=== PATIENT | male | born 1930 | race Caucasian/White ===

== ENCOUNTER 2017-11-19 10:03 | Emergency (ER) | payer MEDICARE ==
[~2017-11-19] VITALS: Ht 175.3 cm; Wt 86.2 kg
--- NOTE | 2017-11-19 10:06 | Emergency Room Report ---
History of Present Illness General Chief Complaint: To Be Triaged Source: Patient Present Illness HPI [id number] walk-in with acute dizziness and nausea Patient "feels like my balance is off." Patient woke up this morning approximately 2 hours ago Patient states she woke up at 7, went to the bathroom then went back to bed felt okay. An hour later patient woke up had severe dizziness with nausea without vomiting , felt like he "was falling all over the place" but notes specifically he keeps feeling like he's got a fall to the right side. Never had this before. no associated headache, chest pain, shortness of breath, abdominal pain, urinary complaints. Patient with history significant for high blood pressure, diabetes, cardiac stents No prior stroke Allergies: Coded Allergies: No Known Allergies (Unverified , 11/19/17) Patient History Past Medical History: DM, HTN, CAD Past Surgical History: pacemaker Pertinent Family History: none Social History: Denies: smoking, alcohol use, drug use Immunizations: UTD Reviewed Nursing Documentation: PMH: Agreed; PSxH: Agreed Review of Systems All Other Systems: negative except mentioned in HPI Physical Exam Sp02 EP Interpretation: reviewed, normal General Appearance: normal inspection, well appearing, no apparent distress, alert, GCS 15, non-toxic Head: normocephalic, atraumatic Eyes: bilateral eye PERRL, bilateral eye EOMI ENT: normal ENT inspection, hearing grossly normal, normal pharynx, no angioedema, normal voice, TMs + canals normal, uvula midline, moist mucus membranes Neck: normal inspection, full range of motion, supple, thyroid normal, no meningismus, no bony tend Respiratory: normal inspection, lungs clear, normal breath sounds, no rhonchi, no respiratory distress, no retraction, no accessory muscle use, no wheezing, speaking full sentences Cardiovascular #1: regular rate, rhythm, no edema, no JVD, normal capillary refill Gastrointestinal: normal inspection, normal bowel sounds, non tender, soft, no mass, no peritonitis, non-distended, no guarding, no hernia, no pulsatile mass Genitourinary: no CVA tenderness Musculoskeletal: normal inspection, back normal, normal range of motion, no calf tenderness, pelvis stable, Blake's Sign negative Neurologic: normal inspection, alert, oriented x3, responsive, 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, motor strength/tone normal, cerebellar normal, normal gait, speech normal, other - Negative cerebellar signs Psychiatric: normal inspection, judgement/insight normal, mood/affect normal, no suicidal/homicidal ideation, no delusions Skin: normal inspection, normal color, no rash Lymphatic: normal inspection, no adenopathy Medical Decision Making Diagnostic Impression: Primary Impression: Dizziness ER Course VSS, afebrile No focal neuro deficits DDx includes infection, ACS, CVA CT: age-related changes, no acute findings ECG shows paced rhythm, troponin is 0 Elevated serum creatinine, patient states he was told he has 40% efficiency of kidneys, this likely is his baseline, he otherwise does not appear dehydrated. Chest x-ray and urinalysis negative for infection, no leukocytosis: Infection unlikely the cause of this episode Orthostatics negative patient not on beta romulo Unlikely etiology at this time Reassured patient, and son Patient anxious to take flight home to [facility] f/up with his PMD in [place] ER course: Patient has remained stable during ED stay. Disposition: Patient is to be discharged to home. Patient is instructed to follow up with their primary care doctor within 1 days. Strict return precautions discussed with patient such as fever, chills, worsening/severe pain, nausea, vomiting, which may indicate severe illness. Patient verbalizes understanding and agrees with plan. Please note that this Emergency Department Report was dictated using [employer] technology software, occasionally this can lead to erroneous entry secondary to interpretation by the dictation equipment EKG Diagnostic Results Rate: other - dual paced Rhythm: other ST Segments: no acute changes ASA given to the pt in ED: No Rhythm Strip Diag. Results EP Interpretation: yes Rate: 75 Chest X-Ray Diagnostic Results Chest X-Ray Diagnostic Results : Chest X-Ray Ordered: Yes # of Views/Limited/Complete: 1 View Indication: Other - Dizziness EP Interpretation: Yes Interpretation: no consolidation, no effusion, no pneumothorax, no acute cardiopulmonary disease Impression: No acute disease Electronically Signed by: Dr Darrell Gutierrez mD Status: improved Disposition: HOME, SELF-CARE DARRELL GUTIERREZ M.D. Nov 19, 2017 10:06
[2017-11-19] MEDS ORDERED: ELIQUIS5 M1 PO (10:12)
[2017-11-19] MEDS ORDERED: FISH OIL CAP1000 MG ORAL (10:12)
[2017-11-19] MEDS ORDERED: PROSCAR5 MG ORAL (10:12)
[2017-11-19] MEDS ORDERED: VITAMIN D400 INTLU ORAL (10:12)
[2017-11-19] MEDS ORDERED: PRAVASTATIN SOD20 M1 ORAL (10:12)
[2017-11-19] MEDS ORDERED: METFORMIN HCL500 M1 ORAL (10:12)
[2017-11-19] MEDS ORDERED: SPIRONOLACTONE1 EACH ORAL (10:12)
[2017-11-19] MEDS ORDERED: FLAXSEED1000 MG PO (10:12)
[2017-11-19] MEDS ORDERED: ISOSORBIDE MONO20 MG PO (10:12)
--- NOTE | 2017-11-19 10:40 | Diagnostic Imaging Report ---
Indication: Vertigo Technique: Continuous helical CT scanning of the head was performed without intravenous contrast material. Axial and coronal 5 mm sections were generated. Dose: Total Dose Length Product - DLP [address] Dose Index - CTDIvol(s) 70.38 mGy. Automated exposure control was utilized for dose reduction. Comparison: None Findings: There is prominence of cortical sulci and the ventricular system. Periventricular low density is present. There is no shift of midline structures. No abnormal extra-axial fluid collections are noted. There is no evidence of intracerebral bleeding. No other abnormal high or low density areas are noted within the brain. Impression: Atrophy. 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 Otherwise negative. No acute abnormality. The CT scanner at [facility] is accredited by the [employer] and the scans are performed using protocols designed to limit radiation exposure to as low as reasonably achievable to attain images of sufficient resolution adequate for diagnostic evaluation.
--- NOTE | 2017-11-19 10:41 | Diagnostic Imaging Report ---
Indication: Chest pain Technique: XRAY Chest 1v Comparison:None Findings: The heart is normal in size. The lungs are free of infiltrates. There is a pacemaker over the right chest with leads in the region of the right atrium and either the upper right ventricle or the coronary sinus. No pleural fluid. Bones are mildly osteopenic. Impression: Pacemaker with lead placement as described above. Osteopenia. No acute abnormality.
[2017-11-19 10:54] LABS: BASOPHILS % (AUTO) 0.8 % (0.0-2.0); EOSINOPHILS % (AUTO) 2.5 % (0.0-3.0); HEMATOCRIT 34.9 % (42.0-52.0); MEAN CORPUSCULAR VOLUME 95 FL (80-99); MONOCYTES % (AUTO) 9.2 % (1.0-10.0); NEUTROPHILS % (AUTO) 70.5 % (45.0-75.0); PLATELET COUNT 191 K/UL (150-450); RED BLOOD COUNT 3.67 M/UL (4.70-6.10); RED CELL DISTRIBUTION WIDTH 12.2 % (11.6-14.8); WHITE BLOOD COUNT 6.8 K/UL (4.8-10.8)
[2017-11-19 10:56] VITALS: BP 125/74
[2017-11-19 11:03] LABS: ANION GAP 11 mmol/L (5-15); BLOOD UREA NITROGEN 32 mg/dL (7-18); CALCIUM 9.2 MG/DL (8.5-10.1); CARBON DIOXIDE 26 MMOL/L (21-32); CHLORIDE 104 MMOL/L (98-107); CREATININE 1.6 MG/DL (0.55-1.30); POTASSIUM 4.6 MMOL/L (3.5-5.1); SODIUM 141 MMOL/L (136-145)
[2017-11-19 11:08] LABS: ALANINE AMINOTRANSFERASE 18 U/L (12-78); ALBUMIN 3.6 G/DL (3.4-5.0); ALBUMIN/GLOBULIN RATIO 1.2 (1.0-2.7); ALKALINE PHOSPHATASE 61 U/L (46-116); ASPARTATE AMINO TRANSFERASE 17 U/L (15-37); BILIRUBIN,TOTAL 0.5 MG/DL (0.2-1.0)
[2017-11-19 11:15] LABS: APPEARANCE,URINE CLEAR; BILIRUBIN, URINE NEGATIVE (NEGATIVE); COLOR,URINE PALE YELLOW; GLUCOSE, URINE (UA) NEGATIVE (NEGATIVE); KETONES,URINE NEGATIVE (NEGATIVE); LEUKOCYTE ESTERASE ,URINE NEGATIVE (NEGATIVE); NITRITE,URINE NEGATIVE (NEGATIVE); PH,URINE 5 (4.5-8.0); PROTEIN,URINE NEGATIVE (NEGATIVE); UROBILINOGEN,URINE NORMAL MG/DL (0.0-1.0)
[2017-11-19 11:26] VITALS: BP 136/67
--- NOTE | 2017-11-21 12:28 | Cardiology Report ---
APPROVED REPORT EKG Measurement Heart [id number] with occasional premature ventricular complexes Abnormal ECG
== END 2017-11-19 11:26 | disposition home or self-care (01) ==
LOC: EMR 10:35
DX: R42 Dizziness and giddiness (principal); R11.2 Nausea with vomiting, unspecified; M85.80 Other specified disorders of bone density and structure, unspecified site; Z95.0 Presence of cardiac pacemaker
CPT/HCPCS: 36415; 70450; 71045; 80053; 81003; 82962; 84484; 85025; 85610; 93005; 99283